=== PATIENT | female | born 1985 | race Caucasian/White ===

== ENCOUNTER 2020-05-22 12:33 | Emergency (ER) | payer MEDICAID, SELFPAY ==
[2020-05-22 12:33] VITALS: BP 121/69; PULSE 91; RESP 16; TEMP 35.8; O2SAT 99; BMI 23.8
[2020-05-22] MEDS: dexAMETHasone 10 MG/ML Vial PO.IVFORM (13:30)
[2020-05-22] MEDS: Clindamycin HCl 150 MG Capsule 300 MG PO (13:30)
--- NOTE | 2020-05-22 13:51 | ED.VISSUMM ---
- ER Visit Summary Date of Service: 05/22/20 Chief Complaint: Sore throat History of Present Illness: The patient is a 34 F with a sore throat for several days, it is worse on the left side. No associated fever or cough. No voice changes. No shortness of breath or trouble swallowing. Physical Examination: Afebrile and vital signs unremarkable. Patient in no acute distress, sitting, moving, breathing comfortably without objective distress. HEENT exam shows normal, midline uvula with no sign of abscess. Good range of motion of her neck. She does have some left-sided anterior cervical lymphadenopathy. Salivary glands are normal. Neck is otherwise unremarkable. Skin appears normal. Cranial nerves grossly intact. Test Results: Strep test was presumptively negative. Emergency Department Course and Treatment: Patient was treated with Decadron and clindamycin. She has an allergy to penicillin. She passed a PO challenge. We will continue her on [id number] remedies for pain. Prescription for clindamycin. Risks of abscess and other complications discussed. Return for any issues right away. Treatment Plan: As above Disposition: Discharge Impression: Pharyngitis This note was generated with [employer] dictation software. It may contain incorrect words, spelling, and punctuation that were not noted in review of the chart prior to signing ED Disposition - Plan for ED Patient: Referrals: Care Physician,No Primary [Primary Care Provider] -
--- NOTE | 2020-05-22 13:52 | ED.DEP ---
ED Disposition - Plan for ED Patient: Instructions: ED Pharyngitis Report Pending Prescriptions: Clindamycin [Cleocin] 300 mg PO TID 10 Days #60 cap Prescription Printed Referrals: Beckie Cuenca [NON-STAFF] -
[2020-05-22 13:56] VITALS: RESP 18
== END 2020-05-22 14:02 | disposition home or self-care (01) ==
LOC: ED 13:18
PROVIDERS: Emergency Provider Emergency Medicine
DX: J02.9 Acute pharyngitis, unspecified (principal); F17.200 Nicotine dependence, unspecified, uncomplicated
CPT/HCPCS: 87880; 99282